=== PATIENT | female | born 1950 | race Caucasian/White ===

== ENCOUNTER 2023-09-09 07:01 | Inpatient (IN) ==
[~2023-09-09 07:01] MED LIST: NS 0.45% 1000 ml BAG 1,000 ML IV SCH; Naloxone 0.4 mg VIAL 0.4 mg/ml 1 ml VIAL IV PRN
[2023-09-09] MEDS ORDERED: ROPIVACAINE 5 MG/ML 30 ML BTL (0.5%) ONE (07:39)
[2023-09-09] MEDS ORDERED: Dexamethasone IV 4 MG/ML VIAL 1 ml VIAL ONE ×2 (07:39→07:53)
[2023-09-09] MEDS ORDERED: Midazolam 2 mg/2 ml VIAL 1 mg/ml 2 ml VIAL (2 mg) ONE ×2 (07:39→07:53)
[2023-09-09] MEDS ORDERED: ceFAZolin 2 GM PREMIX 2 GM/50 ML BAG ONE (07:42)
[2023-09-09] MEDS ORDERED: Propofol 10 MG/ML 20 ML BTL ONE (07:53)
[2023-09-09] MEDS ORDERED: Lidocaine 2% PF 5 ML VIAL ONE (07:53)
[2023-09-09] MEDS ORDERED: Rocuronium 50 mg VIAL 10 mg/ml 5 ml VIAL (50 mg) ONE (07:53)
[2023-09-09] MEDS ORDERED: fentaNYL 250 mcg/5 ml 50 MCG/ML 5 ml VIAL (250 MCG) ONE (07:53)
[2023-09-09] MEDS ORDERED: Ondansetron 4 mg VIAL 2 MG/ML 2 ml VIAL ONE ×2 (07:53→12:04)
[2023-09-09] MEDS: Lactated Ringers 1000 ml BAG 1,000 ML IV SCH ×2 (08:06→14:04)
[2023-09-09] MEDS: Buffered Lidocaine 1% SYRIN 1 ml INTRADERM ONE (08:06)
[2023-09-09] MEDS ORDERED: Sevoflurane BOTTLE ONE (09:46)
[2023-09-09] MEDS ORDERED: Bupivacaine 0.5% SDV PF 30ML VIAL ONE (09:55)
[2023-09-09] MEDS ORDERED: Ondansetron 4 mg VIAL 2 MG/ML 2 ml VIAL IV PRN (11:05)
[2023-09-09] MEDS ORDERED: Magnesium Hydroxide LIQ 30 ML UDC PO PRN (11:05)
[2023-09-09] MEDS ORDERED: Morphine 2 MG/ML SYRINGE IV PRN (11:17)
[2023-09-09] MEDS ORDERED: fentaNYL 100 mcg/2 ml 50 MCG/ML VIAL ONE (11:36)
[2023-09-09] MEDS: fentaNYL 100 mcg/2 ml 50 MCG/ML VIAL IV PRN (11:38)
[2023-09-09] MEDS: Ondansetron 4 mg VIAL 2 MG/ML 2 ml VIAL IV PRN (12:05)
[2023-09-09] MEDS: Acetaminophen IV 1 GM/100ML 1,000 MG/100 ML BAG IV ONE (12:28)
[2023-09-09] MEDS: Carbidopa/Levodop 25/100 MG TAB PO SCH (13:46)
[2023-09-09] MEDS: ceFAZolin 1 GM in Dextrose 1 GM/50 ML BAG IVPB SCH (17:06)
[2023-09-09] MEDS: Magnesium Hydroxide LIQ 30 ML UDC PO SCH (20:34)
[2023-09-10] MEDS: CMC:Solifenacin 5 mg TAB (NF) PO SCH (09:52)
[2023-09-10] MEDS: Vitamin THERAPEUTIC TAB PO SCH (09:52)
[2023-09-10 10:16] LABS: Hematocrit 35.3 % (35-45); Hemoglobin 11.5 g/dL (11.5-14.3); Mean Platelet Volume 8.4 fL (7.5-11.2); Platelet Count 290 10^3/uL (150-450)
[2023-09-10 10:47] LABS: Calcium 9.1 mg/dL (8.6-10.3); Creatinine, Serum 0.67 mg/dL (0.51-0.95); Potassium 3.8 mmol/L (3.5-5.0); eGFR CKD-EPI 92.8 (>60)
[2023-09-10] MEDS: Ondansetron ODT 4 mg TAB 4 MG TAB PO PRN (11:36)
[2023-09-10] MEDS: Lactulose 30 ml UDC PO PRN (21:16)
[2023-09-11] MEDS: Polyethylene Glycol 3350 17 GM PACKET PO SCH (16:51)
[2023-09-12 06:41] LABS: Hematocrit 31.8 % (35-45); Mean Platelet Volume 8.3 fL (7.5-11.2); Platelet Count 258 10^3/uL (150-450)
== END 2023-09-12 10:50 | DRG 501 ==
LOC: OR 07:01 → EDSEX 09:00 → SSU 11:05
PROVIDERS: ADMIT Orthopaedic Surgery; ATTEND Orthopaedic Surgery